=== PATIENT | female | born 1985 | race Caucasian/White ===

== ENCOUNTER 2021-08-10 12:28 | Inpatient (IN) | payer OTHER ==
[2021-08-10 12:57] VITALS: BMI 42.2
[2021-08-10] MEDS ORDERED: Promethazine HCl 25 MG/ML VIAL IM PRN (13:47)
[2021-08-10] MEDS ORDERED: Lorazepam 2 MG/ML VIAL SLOW IVP PRN (13:47)
[2021-08-10] MEDS ORDERED: Docusate 100 MG CAP PO PRN (13:47)
[2021-08-10] MEDS ORDERED: Calcium Gluc 4.6 MEQ/10 ML (100 MG/ML) SLOW IVP PRN (13:47)
[2021-08-10] MEDS ORDERED: hydrALAZINE 20 MG/ML VIAL SLOW IVP PRN (13:47)
[2021-08-10] MEDS ORDERED: Ondansetron PF 4 MG/2 ML Vial IVP PRN (13:47)
[2021-08-10] MEDS ORDERED: Magnesium Sulfate 20 gm/500 ml 20 GM/500 ML BAG ONE (13:53)
[2021-08-10] MEDS ORDERED: hydrALAZINE 20 MG/ML VIAL ONE (13:54)
[2021-08-10] MEDS ORDERED: Betamet Acet/Betamet Na Ph 30 MG/5 ML VIAL ONE (13:55)
[2021-08-10] MEDS ORDERED: Magnesium Sulfate 20 gm/500 ml 20 GM/500 ML BAG IVPB SCH (14:00)
[2021-08-10] MEDS ORDERED: Betamet Acet/Betamet Na Ph 30 MG/5 ML VIAL IM SCH (14:00)
[2021-08-10] MEDS ORDERED: NIFEdipine 10 MG CAP ONE (14:16)
[2021-08-10 14:21] LABS: Bilirubin Neg (Negative); Blood, Urine 10 (Negative); Clarity Slightly Cloudy (Clear); Glucose, Urine (Dipstick) Normal (Negative); Ketone, Urine Negative (Negative); Leukocyte 500 (Negative); Nitrite Negative (Negative); Protein, Urine (Dipstick) 30 mg/dl (Neg-Trace); Urobilinogen Normal mg/dL (Less than 2)
[2021-08-10 14:25] LABS: Urine Culture Reflex No No
[2021-08-10 14:29] LABS: Amphetamine Not Detected (NotDetected); Barbiturates Screen Not Detected (NotDetected); Benzodiazepine Screen Not Detected (NotDetected); Cocaine Metabolite Screen Not Detected (NotDetected); Methadone Not Detected (NotDetected); Methamphetamine Not Detected (NotDetected); Opiate Screen Not Detected (NotDetected); Oxycodone Screen Not Detected (NotDetected); Phencyclidine (PCP) Not Detected (NotDetected); THC/Cannabinoid Screen Not Detected (NotDetected); Tricyclic Screen Not Detected (NotDetected)
[2021-08-10 14:30] LABS: #Eosinphils 0.1 10x3/uL (0.0-0.5); #Monocytes 0.8 10x3/uL (0.0-1.1); #Neutrophils 9.4 10x3/uL (1.5-8.4); %Basophils 0.3 % (0.0-2.0); %Eosinophils 0.8 % (0.0-6.0); %Lymphocytes 12.9 % (18.0-47.0); %Monocytes 6.7 % (0.0-10.0); %Neutrophils 78.7 % (40.0-75.0); Hemoglobin 12.1 g/dL (12.0-15.5); Mean Corpuscular HGB CONC 34.4 g/dL (32.0-36.0); Mean Corpuscular Hemoglobin 27.9 pg (27.0-33.0); Mean Corpuscular Volume 81.1 fl (81.6-98.3); Platelet Count 186 10x3/uL (150-450); RBC Distribution Width 15.2 % (11.5-14.5); Red Blood Cell (RBC) Count 4.34 10x6/uL (3.90-5.03)
[2021-08-10 14:32] VITALS: BP 181/88
[2021-08-10 14:39] LABS: Bacteria/HPF 1+ HPF (None Seen); RBC/HPF 0-3 HPF (0-3); Squamous Epithelial 0-3 HPF (0-3); Yeast-Budding Rare HPF (None Seen); Yeast-Hyphae 1+ HPF (None Seen)
[2021-08-10] MEDS ORDERED: NIFEdipine 10 MG CAP PO SCH (15:00)
[2021-08-10] MEDS ORDERED: Acetaminophen 500 MG TAB PO PRN (15:23)
[2021-08-10] MEDS ORDERED: Lactated Ringer's 1,000 ML IV SCH (15:30)
[2021-08-10 16:28] LABS: Creatinine, Urine 57.77 mg/dL (47-110)
[2021-08-10 16:28] LABS: ALT (SGPT) 22 U/L (8-55); AST (SGOT) 27 U/L (5-34); Alkaline Phosphatase 105 U/L (40-110); Anion Gap 12 mmol/L (10-20); BUN (Urea Nitrogen) 9 mg/dL (7.0-18.7); Bilirubin, Total 0.2 mg/dL (0.2-1.2); Calc. Creatinine Clearance 199 mL/min (70-130); Calcium 8.6 mg/dL (7.8-10.44); Carbon Dioxide 20 mmol/L (22-29); Chloride 105 mmol/L (98-107); Estimated GFR 120; Globulin 2.6 g/dL (2.4-3.5); Glucose 74 mg/dL (70-105); Potassium 4.3 mmol/L (3.5-5.1); Protein, Total 5.6 g/dL (6.0-8.3); Sodium 133 mmol/L (136-145)
[2021-08-10] MEDS ORDERED: Fluconazole 100 MG TAB PO SCH (16:30)
[2021-08-11] MEDS ORDERED: Fluconazole 100 MG TAB PO SCH (09:00)
== END 2021-08-10 18:03 | disposition short-term general hospital (02) | DRG 833 ==
LOC: CSHLD/OP 12:28 → CSHLD 16:02
PROVIDERS: ADMIT Obstetrics & Gynecology; ATTEND Obstetrics & Gynecology
DX: O14.13 Severe pre-eclampsia, third trimester (principal); Z3A.29 29 weeks gestation of pregnancy; K21.9 Gastro-esophageal reflux disease without esophagitis; F41.9 Anxiety disorder, unspecified; F32.A Depression, unspecified; O43.213 Placenta accreta, third trimester; O99.613 Diseases of the digestive system complicating pregnancy, third trimester; O99.343 Other mental disorders complicating pregnancy, third trimester; Z91.040 Latex allergy status; Z88.1 Allergy status to other antibiotic agents; Z87.891 Personal history of nicotine dependence
CPT/HCPCS: 80053; 80306; 81001; 82570; 84156; 85025; 87086; 99285; J0360; J0702; J3475